=== PATIENT | female | born 1980 | race Caucasian/White ===

== ENCOUNTER 2016-04-05 16:09 | Emergency (ER) | payer SELFPAY ==
--- NOTE | 2016-04-05 16:47 | RAD ---
THREE VIEWS RIGHT HAND: History: Right hand injury. Comparison: None. FINDINGS: No acute fracture or subluxation is evident. No radiopaque foreign body is evident. IMPRESSION: No acute osseous abnormality. POS: [facility]
--- NOTE | 2016-04-05 17:29 | ERRECORD ---
[facility] EMERGENCY RECORD HPI HAND (16:34 SHAN) CHIEF COMPLAINT: Patient presents for evaluation of injury, Patient presents for evaluation of lifting sofa and slipped and dropped it on the right thumb. HISTORIAN: History provided by patient. MECHANISM OF INJURY: Known mechanism, Mechanism of injury: Blunt trauma. SEVERITY: Maximum severity of symptoms mild, Currently symptoms are mild. ROS (16:34 SHAN) CONSTITUTIONAL: Negative constitutional review of systems, Historian denies chills, denies fever. EYES: Negative eye review of systems. ENT: Negative ears, nose, throat review of systems. CARDIOVASCULAR: Negative cardiovascular review of systems, Historian denies chest pain, denies palpitations. RESPIRATORY: Negative respiratory review of systems, Historian denies cough, denies shortness of breath. GI: Negative gastrointestinal review of systems, Historian denies abdominal pain, denies constipation, denies diarrhea. MUSCULOSKELETAL: right thumb pain. SKIN: Negative skin review of systems. NEUROLOGIC: Negative neurologic review of systems. ENDOCRINE: Negative endocrine review of systems. HEMO/LYMPHATIC: Normal hematologic/lymphatic system review. PSYCHIATRIC: Negative psychiatric review of systems. NOTES: All other ROS is negative except as listed in HPI. PAST MEDICAL HISTORY MEDICAL HISTORY: Notes: VERIFIED 09-07-14, Tetanus immunization up to date, Past medical history includes neurological disease, migraine headaches. 12/10/15. (16:20 SFRE) FEMALE SURGICAL HISTORY: VERIFED 09-07-14, Surgical history of cholecystectomy, laparoscopic, Date of surgery 12/2012, Surgical history of hernia repair, Date of surgery 12/2012, Surgical history of appendectomy, Date of surgery 1999, Surgical history of orthopedic surgery, RIGHT SHOULDER, Date of surgery 2010, Surgical history of hysterectomy, Date of surgery 2005, Surgical history of tubal ligation, Date of surgery 2002. 12/10/15. (16:20 SFRE) PSYCHIATRIC HISTORY: Notes: VERIFIED 09-07-14, Psychiatric history includes, anxiety, depression. (16:20 SFRE) SOCIAL HISTORY: Social History includes VERIFIED 09-07-14, Patient denies alcohol use, Patient denies drug use, Patient currently uses tobacco, smokes cigarettes, pt reports that she has changed to smoking vapor cigs.12/10/15. (16:20 SFRE) FAMILY HISTORY: COPD---GRANDMOTHER, Family history includes coronary artery disease, maternal grandfather, Family history includes hypertension. (16:20 SFRE) NOTES: I have reviewed and agree with the PMH/PSxH/FamHx/SocHx &a-1R&a+25V*p+0X*d7334V*c202B*c15G*c2P*p-0X&a-25V&a+1R Name: Darline Lerner : 1980 F35 MedRec: [id number] AcctNum: [id number] Prepared: TueApr 05, 2016 17:33 by Interface Page 1 of 3 pMD [facility] EMERGENCY RECORD obtained by the nurse. (16:34 SHAN) KNOWN ALLERGIES Penicillins PHENobarbital VICOdin CURRENT MEDICATIONS montelukast: TABLET : Strength - 10 mg : ORAL Patient Dose: Unknown. (16:20 SFRE) traZODone: TABLET : Strength - 50 mg : ORAL Patient Dose: Unknown. (16:21 SFRE) FLUoxetine: CAPSULE : Strength - 20 mg : ORAL Patient Dose: Unknown. (16:21 SFRE) Proventil HFA: HFA AEROSOL WITH ADAPTER (GRAM) : Strength - 90 mcg : INHALATION Patient Dose: 2 inhalation Intranasal. (16:22 SFRE) VITAL SIGNS (16:17 SFRE) VITAL SIGNS: BP: 113/61, Pulse: 72, Resp: 18, Temp: 99.0 (Tympanic), Pain: 8 (Constant), O2 sat: 97 on Room Air, Time: 04/05/2016 16:17. PHYSICAL EXAM (16:34 SHAN) CONSTITUTIONAL: Vital signs reviewed, Patient appears non toxic, Patient alert and oriented to person, place and time, Pt is in no apparent distress. HEAD: Head exam included findings of head atraumatic, normocephalic. EYES: Eye exam included findings of eyelids normal to inspection, Pupils equally round and reactive to light, Extraocular muscles intact. ENT: ENT exam normal, Nose exam normal, no nasal deformity, no bleeding from nares, Pharynx exam normal, Mouth exam normal, mucous membranes moist. NECK: Neck exam included findings of normal range of motion, Trachea midline. RESPIRATORY CHEST: Respiratory and chest exam normal, Breath sounds clear, No wheezing, No rales, Chest exam included findings of chest movement symmetrical, Chest expansion equal. CARDIOVASCULAR: Cardiovascular assessment normal, Cardiovascular exam included findings of heart rate regular rate and rhythm, Heart sounds normal. ABDOMEN FEMALE: Abdominal exam included findings of abdomen nontender, Bowel sounds normal, no mass, no pulsatile masses, no peritoneal signs. BACK: Back exam included findings of normal inspection, range of &a-1R&a+25V*p+0X*l0988I*c202B*c15G*c2P*p-0X&a-25V&a+1R Name: Darline Lerner : 1980 F35 MedRec: [id number] AcctNum: [id number] Prepared: TueApr 05, 2016 17:33 by Interface Page 2 of 3 pMD [facility] EMERGENCY RECORD motion normal, no costovertebral angle tenderness. UPPER EXTREMITY: right thumb with pain and tenderness at mp region, some bruising., Upper extremity exam included findings of inspection normal, Range of motion normal. LOWER EXTREMITY: Lower extremity exam included findings of inspection normal, Range of motion normal. NEURO: Neuro exam findings include patient oriented to person, place and time, Speech normal, no focal motor deficits, no focal sensory deficits. SKIN: Skin exam included findings of skin warm, dry, and normal in color. LYMPHATIC: Lymphatic exam normal. PSYCHIATRIC: Psychiatric exam included findings of patient oriented to person place and time, Normal affect. DOCTOR NOTES (:20 SHAN) TEXT: x-rays negative; discussed. PROBLEM LIST No recorded problems DIAGNOSIS (: SHAN) FINAL: PRIMARY: thumb contusion, right. PRESCRIPTION (: SHAN) Ultram: TABLET : 50 mg : ORAL : Quantity: 1 Unit: tab(s) Route: ORAL Schedule: every 4 hours prn Dispense: 12 Unit: tab(s) May substitute. Refills: No Refills POTENTIAL ALLERGY REACTION: 'VICOdin [hydrocodone/hydrocodone bitartrate]'. NOTES: No Refills. DISPOSITION PATIENT: Disposition Type: Discharge, Disposition: *Discharge Home. (17:22 SHAN) Patient left the department. (17:33 [facility] Rocha: COLLINS=BRITTANIE Wells, Francisca VERDE=BRITTANIE Otero, Lani CANCINO=MD Heredia Stanley &a-1R&a+25V*p+0X*x2055V*c202B*c15G*c2P*p-0X&a-25V&a+1R Name: Darline Lerner : 1980 F35 MedRec: [id number] AcctNum: [id number] Prepared: TueApr 05, 2016 17:33 by Interface Page 3 of 3 pMD MTDD
--- NOTE | 2016-04-05 17:35 | PICIS ---
[facility] EMERGENCY RECORD TRIAGE (16:18 SFRE) TRIAGE NOTES: PAIN TO RIGHT THUMB. (16:18 SFRE) PATIENT: NAME: Darline Lerner, AGE: 35, GENDER: female, : Tue1980, TIME OF GREET: TueApr 05, 2016 16:09, PREFERRED LANGUAGE: Estonian, ETHNICITY: Not or , FALL RISK: NO, ECODE BILLING MAP: [facility], SSN: [id number], Zip Code: [address], KG WEIGHT: 52.16, PHONE: , , , PERSON ID: [id number], PCP: MD CAREY IMELDA. (16:18 SFRE) COMPLAINT: RT HAND INJURY. (16:18 SFRE) ADMISSION: URGENCY: 4 Non Urgent, ADMISSION SOURCE: Home, TRANSPORT: Walk-in, BED: ED -1. (16:18 SFRE) PAIN: Location RIGHT THUMB, Pain is constant, Aggravating factors:, Pain exacerbated by movement, No relieving factors. (16:20 SFRE) IMMUNIZATIONS: Flu vaccine not up to date. (16:20 SFRE) SIRS SCORING: Heart Rate 55-109 (0), Temp range 96.8-101.1 (0), respiratory rate 12-24 (0), Mental Status altered: no (0). (16:20 SFRE) TRIAGE SCREENING: Patient denies suicidal ideation, Patient denies presence of domestic violence. (16:20 SFRE) PROVIDERS: TRIAGE NURSE: Lani Otero RN. (16:18 SFRE) VITAL SIGNS: BP 113/61, Pulse 72, Resp 18, Temp 99.0, (Tympanic), Pain 8, (Constant), O2 Sat 97, on Room Air, Time 04/05/2016 16:17. (16:17 SFRE) PREVIOUS VISIT ALLERGIES: Penicillins, PHENobarbital, VICOdin. (16:18 SFRE) Penicillins, PHENobarbital, VICOdin. (16:20 SFRE) KNOWN ALLERGIES Penicillins PHENobarbital VICOdin CURRENT MEDICATIONS montelukast: TABLET : Strength - 10 mg : ORAL Patient Dose: Unknown. (16:20 SFRE) traZODone: TABLET : Strength - 50 mg : ORAL Patient Dose: Unknown. (16:21 SFRE) FLUoxetine: CAPSULE : Strength - 20 mg : ORAL Patient Dose: Unknown. (16:21 SFRE) Proventil HFA: HFA AEROSOL WITH ADAPTER (GRAM) : Strength - 90 mcg : INHALATION Patient Dose: 2 inhalation Intranasal. (16:22 SFRE) VITAL SIGNS (16:17 SFRE) VITAL SIGNS: BP: 113/61, Pulse: 72, Resp: 18, Temp: 99.0 &a-1R&a+25V*p+0X*d8427G*c202B*c15G*c2P*p-0X&a-25V&a+1R Name: Darline Lerner : 1980 F35 MedRec: [id number] AcctNum: [id number] Prepared: TueApr 05, 2016 17:33 by Interface Page 1 of 5 pMD [facility] EMERGENCY RECORD (Tympanic), Pain: 8 (Constant), O2 sat: 97 on Room Air, Time: 04/05/2016 16:17. NURSING PROCEDURE: [facility]GE: Patient discharged to home, ambulating without assistance, family driving, accompanied by other family member, Summary of Care printed/ provided, Patient requested and was provided an electronic copy of Discharge Instructions, Transition record given to patient, Discharge instructions given to patient, Simple or moderate discharge teaching performed, Prescriptions given and instructions on side effects given, Medication reconciliation form given, Above person(s) verbalized understanding of discharge instructions and follow-up care, Patient treated and evaluated by physician. BELONGINGS: Belongings and valuables with patient at time of discharge include:, Belongings remain with patient, Valuables remain with patient. SAFETY: Side rails up, Cart/Stretcher in lowest position, Family at bedside, Hospital ID band on. NURSING PROCEDURE: SPLINTING (17:23 SFRE) SPLINTING: Splinting indicated for pain control, Splinting indicated for CONTUSION, Splint applied to, the first finger, on the right hand, by JORGE. ORDER DETAILS Order Name: XR Hand Rt 3 View STANDARD, Status: Active, Time: 16:26 04/05/2016, User: AMMON, - Ordered for: MD Heredia Stanley, - Entered by: BRITTANIE Otero, Lani - TueApr 05, 2016 16:26, - Quantity: 1. HPI HAND (16:34 JULITA) CHIEF COMPLAINT: Patient presents for evaluation of injury, Patient presents for evaluation of lifting sofa and slipped and dropped it on the right thumb. HISTORIAN: History provided by patient. MECHANISM OF INJURY: Known mechanism, Mechanism of injury: Blunt trauma. SEVERITY: Maximum severity of symptoms mild, Currently symptoms are mild. ROS (16:34 SHAN) CONSTITUTIONAL: Negative constitutional review of systems, Historian denies chills, denies fever. EYES: Negative eye review of systems. ENT: Negative ears, nose, throat review of systems. CARDIOVASCULAR: Negative cardiovascular review of systems, Historian denies chest pain, denies palpitations. RESPIRATORY: Negative respiratory review of systems, Historian &a-1R&a+25V*p+0X*o9734F*c202B*c15G*c2P*p-0X&a-25V&a+1R Name: Darline Lerner : 1980 F35 MedRec: [id number] AcctNum: [id number] Prepared: TueApr 05, 2016 17:33 by Interface Page 2 of 5 pMD [facility] EMERGENCY RECORD denies cough, denies shortness of breath. GI: Negative gastrointestinal review of systems, Historian denies abdominal pain, denies constipation, denies diarrhea. MUSCULOSKELETAL: right thumb pain. SKIN: Negative skin review of systems. NEUROLOGIC: Negative neurologic review of systems. ENDOCRINE: Negative endocrine review of systems. HEMO/LYMPHATIC: Normal hematologic/lymphatic system review. PSYCHIATRIC: Negative psychiatric review of systems. NOTES: All other ROS is negative except as listed in HPI. PAST MEDICAL HISTORY MEDICAL HISTORY: Notes: VERIFIED 09-07-14, Tetanus immunization up to date, Past medical history includes neurological disease, migraine headaches. 12/10/15. (16:20 SFRE) FEMALE SURGICAL HISTORY: VERIFED 09-07-14, Surgical history of cholecystectomy, laparoscopic, Date of surgery 12/2012, Surgical history of hernia repair, Date of surgery 12/2012, Surgical history of appendectomy, Date of surgery 1999, Surgical history of orthopedic surgery, RIGHT SHOULDER, Date of surgery 2010, Surgical history of hysterectomy, Date of surgery 2005, Surgical history of tubal ligation, Date of surgery 2002. 12/10/15. (16:20 SFRE) PSYCHIATRIC HISTORY: Notes: VERIFIED 09-07-14, Psychiatric history includes, anxiety, depression. (16:20 SFRE) SOCIAL HISTORY: Social History includes VERIFIED 09-07-14, Patient denies alcohol use, Patient denies drug use, Patient currently uses tobacco, smokes cigarettes, pt reports that she has changed to smoking vapor cigs.12/10/15. (16:20 SFRE) FAMILY HISTORY: COPD---GRANDMOTHER, Family history includes coronary artery disease, maternal grandfather, Family history includes hypertension. (16:20 SFRE) NOTES: I have reviewed and agree with the PMH/PSxH/FamHx/SocHx obtained by the nurse. (16:34 SHAN) PHYSICAL EXAM (16:34 SHAN) CONSTITUTIONAL: Vital signs reviewed, Patient appears non toxic, Patient alert and oriented to person, place and time, Pt is in no apparent distress. HEAD: Head exam included findings of head atraumatic, normocephalic. EYES: Eye exam included findings of eyelids normal to inspection, Pupils equally round and reactive to light, Extraocular muscles intact. ENT: ENT exam normal, Nose exam normal, no nasal deformity, no bleeding from nares, Pharynx exam normal, Mouth exam normal, mucous membranes moist. NECK: Neck exam included findings of normal range of motion, Trachea midline. RESPIRATORY CHEST: Respiratory and chest exam normal, Breath &a-1R&a+25V*p+0X*t1016O*c202B*c15G*c2P*p-0X&a-25V&a+1R Name: Darline Lerner : 1980 F35 MedRec: [id number] AcctNum: [id number] Prepared: TueApr 05, 2016 17:33 by Interface Page 3 of 5 pMD [facility] EMERGENCY RECORD sounds clear, No wheezing, No rales, Chest exam included findings of chest movement symmetrical, Chest expansion equal. CARDIOVASCULAR: Cardiovascular assessment normal, Cardiovascular exam included findings of heart rate regular rate and rhythm, Heart sounds normal. ABDOMEN FEMALE: Abdominal exam included findings of abdomen nontender, Bowel sounds normal, no mass, no pulsatile masses, no peritoneal signs. BACK: Back exam included findings of normal inspection, range of motion normal, no costovertebral angle tenderness. UPPER EXTREMITY: right thumb with pain and tenderness at mp region, some bruising., Upper extremity exam included findings of inspection normal, Range of motion normal. LOWER EXTREMITY: Lower extremity exam included findings of inspection normal, Range of motion normal. NEURO: Neuro exam findings include patient oriented to person, place and time, Speech normal, no focal motor deficits, no focal sensory deficits. SKIN: Skin exam included findings of skin warm, dry, and normal in color. LYMPHATIC: Lymphatic exam normal. PSYCHIATRIC: Psychiatric exam included findings of patient oriented to person place and time, Normal affect. EVENTS TRANSFER: Triage to Emergency Main ED -H01. (TueApr 05, 2016 16:18 SFRE) Emergency Main ED -H01 to -04. (16:25 RYLEY) Removed from Emergency Main ED -04. (17:33 SCHI) DOCTOR NOTES (17:20 SHAN) TEXT: x-rays negative; discussed. PROBLEM LIST No recorded problems DIAGNOSIS (17:22 SHAN) FINAL: PRIMARY: thumb contusion, right. DISPOSITION PATIENT: Disposition Type: Discharge, Disposition: *Discharge Home. (17:22 SHAN) Patient left the department. (17:33 SCHI) INSTRUCTION (17:24 SHAN) DISCHARGE: CONTUSION, HAND. FOLLOWUP: MD CHERRY, [facility], [facility][1], [address] [place] [id number], [phone]. SPECIAL: 1. use splint until pain is gone 2. followup with regular provider in a few days &a-1R&a+25V*p+0X*q4899Y*c202B*c15G*c2P*p-0X&a-25V&a+1R Name: Darline Lerner : 1980 F35 MedRec: [id number] AcctNum: [id number] Prepared: TueApr 05, 2016 17:33 by Interface Page 4 of 5 pMD [facility] EMERGENCY RECORD 3. if this doesn't improve, it may need re-xrayed later; but todays appears good 4. ultram if needed for pain sparingly. PRESCRIPTION (17:22 SHAN) Ultram: TABLET : 50 mg : ORAL : Quantity: 1 Unit: tab(s) Route: ORAL Schedule: every 4 hours prn Dispense: 12 Unit: tab(s) May substitute. Refills: No Refills POTENTIAL ALLERGY REACTION: 'VICOdin [hydrocodone/hydrocodone bitartrate]'. NOTES: No Refills. IMAGING (17:32 SCHI) *DISCHARGE INSTRUCTIONS RECEIPT: Image captured from scanner. *SUPPLY CHARGE SHEET: Image captured from scanner. ADMIN DIGITAL SIGNATURE: MD Heredia Stanley. (17:24 JULITA) BRITTANIE Wells Slinda. (17:33 COLLINS) RESULTS (16:54 AMMON) RADIOLOGY: XR Hand Rt 3 View STANDARD Observe DT: TueApr 05, 2016 16:27, HAND3R THREE VIEWS RIGHT HAND: History: Right hand injury. Comparison: None. FINDINGS: No acute fracture or subluxation is evident. No radiopaque foreign body is evident. IMPRESSION: No acute osseous abnormality. POS: [facility] . Rocha: RYLEY=BRITTANIE Mancia, Lainey GUADALUPE=BRITTANIE Wells, Francisca GRIGGSE=BRITTANIE Otero, Lani CANCINO=MD Heredia Stanley &a-1R&a+25V*p+0X*w4234O*c202B*c15G*c2P*p-0X&a-25V&a+1R Name: Darline Lerner : 1980 F35 MedRec: [id number] AcctNum: [id number] Prepared: TueApr 05, 2016 17:33 by Interface Page 5 of 5 pMD MTDD
== END 2016-04-05 17:29 | disposition home or self-care (01) ==
LOC: MADERS 16:09
DX: S60.011A Contusion of right thumb without damage to nail, initial encounter (principal); F41.9 Anxiety disorder, unspecified; F32.9 Major depressive disorder, single episode, unspecified; F17.210 Nicotine dependence, cigarettes, uncomplicated; W01.0XXA Fall on same level from slipping, tripping and stumbling without subsequent striking against object, initial encounter
CPT/HCPCS: 99283

== ENCOUNTER 2016-10-12 11:30 | Emergency (ER) | payer SELFPAY ==
[2016-10-12 12:03] LABS: #Basophils 0.2 thou/uL (0.0-0.2); #Eosinphils 0.8 thou/uL (0.0-0.7); #Lymphocytes 2.5 thou/uL (1.20-3.40); #Monocytes 1.1 thou/uL (0.11-0.59); #Neutrophils 8.7 thou/uL (1.40-6.50); %Basophils 1.7 % (0.0-1.0); %Lymphocytes 18.9 % (21.0-51.0); %Monocytes 8.4 % (0.0-10.0); Hemoglobin 14.8 g/dL (12.0-16.0); Mean Corpuscular HGB CONC 33.6 g/dL (32.0-36.0); Mean Corpuscular Hemoglobin 32.6 pg (27.0-31.0); Mean Platelet Volume 10.6 fL (7.4-10.4); Platelet Count 252 thou/uL (130-400); RBC Distribution Width 11.8 % (11.5-14.5); Red Blood Cell (RBC) Count 4.54 mill/uL (4.20-5.40); White Blood Cell (WBC) Count 13.4 thou/uL (4.8-10.8)
[2016-10-12] MEDS ORDERED: Fentanyl 100 MCG/2 ML VIAL ONE (12:07)
[2016-10-12 12:14] LABS: PTT 28.1 SEC (22.9-36.1)
[2016-10-12 12:15] LABS: INR-International Normal Ratio 0.9; Prothrombin Time 12.1 SEC (12.0-14.7)
[2016-10-12 12:18] LABS: ALT (SGPT) 19 U/L (8-55); AST (SGOT) 17 U/L (5-34); Albumin 4.2 g/dL (3.5-5.0); Alkaline Phosphatase 79 U/L (40-150); Anion Gap 13 mmol/L (10-20); BUN (Urea Nitrogen) 10 mg/dL (7.0-18.7); Bilirubin, Total Less than 0.3 mg/dL (0.2-1.2); Calc. Creatinine Clearance 0 mL/min (70-130); Carbon Dioxide 22 mmol/L (22-29); Chloride 108 mmol/L (98-107); D-Dimer Test Less than 0.27 *mcg/mL (0.27-0.43); Estimated GFR-MDRD 87; Globulin 3.1 g/dL (2.4-3.5); Glucose 71 mg/dL (70-105); Lipase 55 U/L (8-78); Potassium 3.7 mmol/L (3.5-5.1); Protein, Total 7.3 g/dL (6.0-8.3); Sodium 139 mmol/L (136-145)
[2016-10-12 12:19] LABS: CKMB 0.7 ng/mL (0-6.6); Troponin I Less than 0.010 ng/mL (< 0.028)
--- NOTE | 2016-10-12 12:21 | RAD ---
TWO VIEWS CHEST: Comparison: 03-21-13, 12-10-15 History: Chest pain. FINDINGS: Normal cardiac silhouette. The pulmonary vessels and hilum are normal. Costophrenic angles are clear . No mass. No consolidation. No pneumothorax or osseous abnormalities. IMPRESSION: No acute cardiopulmonary process. POS: [facility]
[2016-10-12] MEDS ORDERED: Mag-Al Plus 1200 MG/1200 MG/120 MG/30 ML UDCUP ONE (12:31)
== END 2016-10-12 14:55 | disposition home or self-care (01) ==
LOC: MADERS 11:30
DX: K29.70 Gastritis, unspecified, without bleeding (principal); F41.9 Anxiety disorder, unspecified; F32.9 Major depressive disorder, single episode, unspecified; F17.210 Nicotine dependence, cigarettes, uncomplicated
CPT/HCPCS: 36415; 71020; 80053; 82553; 83690; 83880; 84484; 85025; 85379; 85610; 85730; 93005; 96374; J3010

== ENCOUNTER 2017-05-31 10:40 | Emergency (ER) | payer MEDICAID, SELFPAY ==
--- NOTE | 2017-05-31 11:46 | RAD ---
THREE VIEWS RIGHT FOOT: Date: 05-31-17 History: Pain at right first metacarpal phalangeal joint. Comparison: 03-11-15 FINDINGS: Lisfranc joint is normally aligned. No fracture or dislocation is seen involving the right foot. Ther e has been no interval change compared to the prior exam. IMPRESSION: No acute osseous abnormality right foot. POS: [facility]
== END 2017-05-31 11:40 | disposition home or self-care (01) ==
LOC: MADERS 10:40
DX: M77.51 Other enthesopathy of right foot and ankle (principal); L02.01 Cutaneous abscess of face; F41.9 Anxiety disorder, unspecified; F32.9 Major depressive disorder, single episode, unspecified; F17.210 Nicotine dependence, cigarettes, uncomplicated

== ENCOUNTER 2017-07-27 09:52 | Outpatient (CLI) | payer MEDICAID ==
--- NOTE | 2017-07-27 12:23 | ULT ---
PELVIC ULTRASOUND: Technique: Transabdominal and endovaginal ultrasound of the pelvis performed. Indications: Pelvic pain. Prior hysterectomy. FINDINGS: Right ovary is noted identified. Left ovary is identified and appears unremarkable. A small follicula r cyst on the left ovary measures approximately 1.0 cm. Color doppler with spectral analysis demonstr ates flow to the left ovary. No free fluid or mass lesion is seen. IMPRESSION: 1. Post hysterectomy. 2. Right ovary not identified. 3. Left ovary appears unremarkable. POS: [facility]
== END 2017-07-27 09:53 | disposition home or self-care (01) ==
LOC: MADULT 09:52
PROVIDERS: ATTEND Family Medicine
DX: N94.12 Deep dyspareunia (principal); Z90.710 Acquired absence of both cervix and uterus
CPT/HCPCS: 76856

== ENCOUNTER 2018-12-12 17:24 | Emergency (ER) | payer SELFPAY | END 2018-12-12 18:05 | disposition home or self-care (01) | LOC: MADERS 17:24 | DX: K02.9 Dental caries, unspecified (principal); G43.909 Migraine, unspecified, not intractable, without status migrainosus; F41.9 Anxiety disorder, unspecified; F32.9 Major depressive disorder, single episode, unspecified; F17.210 Nicotine dependence, cigarettes, uncomplicated; Z79.82 Long term (current) use of aspirin; Z79.899 Other long term (current) drug therapy | CPT/HCPCS: 99281 ==

== ENCOUNTER 2020-02-17 12:51 | Emergency (ER) | payer SELFPAY ==
[2020-02-17] MEDS ORDERED: traMADol HCl 50 MG TAB ONE (13:26)
[2020-02-17] MEDS ORDERED: Clindamycin 150 MG CAP ONE (13:27)
[2020-02-17] MEDS ORDERED: Calcium Carbonate 500 MG ChewTAB ONE (13:27)
== END 2020-02-17 13:50 | disposition home or self-care (01) ==
LOC: MADERS 12:51
DX: K04.7 Periapical abscess without sinus (principal); G43.909 Migraine, unspecified, not intractable, without status migrainosus; F17.210 Nicotine dependence, cigarettes, uncomplicated; Z71.6 Tobacco abuse counseling; Z79.82 Long term (current) use of aspirin; Z79.899 Other long term (current) drug therapy
CPT/HCPCS: 99406

== ENCOUNTER 2020-08-09 11:35 | Emergency (ER) | payer OTHER, MEDICAID ==
[2020-08-09] MEDS ORDERED: Oseltamivir 75 MG CAP ONE (11:57)
[2020-08-09] MEDS ORDERED: Boostrix 0.5 ML (Tdap) VIAL ONE (11:57)
[2020-08-09] MEDS ORDERED: Bacitracin 1 PK ONE (12:03)
[2020-08-09] MEDS ORDERED: Lidocaine 1% w/Epinephrine 1:100K 20 ML VIAL ONE (12:03)
[2020-08-09] MEDS ORDERED: Ibuprofen 600 MG TAB ONE (12:03)
== END 2020-08-09 12:25 | disposition home or self-care (01) ==
LOC: MADERS 11:35
DX: S51.812A Laceration without foreign body of left forearm, initial encounter (principal); Z23 Encounter for immunization; G43.909 Migraine, unspecified, not intractable, without status migrainosus; F17.210 Nicotine dependence, cigarettes, uncomplicated; Z79.899 Other long term (current) drug therapy; W45.8XXA Other foreign body or object entering through skin, initial encounter
CPT/HCPCS: 12001; 90471; 90715

== ENCOUNTER 2021-09-28 18:30 | Emergency (ER) | payer OTHER | END 2021-09-28 19:40 | disposition home or self-care (01) | LOC: MADERS 18:30 | DX: S60.211A Contusion of right wrist, initial encounter (principal); F17.210 Nicotine dependence, cigarettes, uncomplicated; W01.0XXA Fall on same level from slipping, tripping and stumbling without subsequent striking against object, initial encounter; Y92.009 Unspecified place in unspecified non-institutional (private) residence as the place of occurrence of the external cause; Z79.899 Other long term (current) drug therapy ==

== ENCOUNTER 2021-12-03 19:18 | Emergency (ER) | payer OTHER ==
[2021-12-03] MEDS ORDERED: Dexamethasone 10 MG/ML VIAL ONE (20:25)
[2021-12-03] MEDS ORDERED: Clindamycin 150 MG CAP ONE (20:25)
== END 2021-12-03 20:31 | disposition home or self-care (01) ==
LOC: MADERS 19:18
DX: J02.9 Acute pharyngitis, unspecified (principal); J06.9 Acute upper respiratory infection, unspecified; K04.7 Periapical abscess without sinus; F17.210 Nicotine dependence, cigarettes, uncomplicated
CPT/HCPCS: 87081; 87430; 99283; J1100

== ENCOUNTER 2023-08-31 19:05 | Emergency (ER) | payer SELFPAY ==
[2023-08-31] MEDS ORDERED: metroNIDAZOLE 250 MG TAB ONE (20:18)
[2023-08-31] MEDS ORDERED: LevoFLOXacin 500 MG TAB ONE (20:18)
[2023-08-31] MEDS ORDERED: Ketorolac Tromethamine 30 MG (1 mL) VIAL ONE (20:26)
== END 2023-08-31 20:45 | disposition home or self-care (01) ==
LOC: MADERS 19:05
DX: K04.7 Periapical abscess without sinus (principal); Z87.891 Personal history of nicotine dependence
CPT/HCPCS: 96372; 99282; J1885

== ENCOUNTER 2024-10-24 14:24 | Emergency (ER) | payer BC ==
[~2024-10-24 14:24] MED LIST: Iopamidol 370 76% 100 ML VIAL ONE
[2024-10-24 15:04] LABS: #Basophils 0.1 thou/uL (0.0-0.2); #Eosinophils 0.1 thou/uL (0.0-0.7); #Lymphocytes 2.4 thou/uL (1.20-3.40); #Monocytes 0.5 thou/uL (0.11-0.59); #Neutrophils 3.6 thou/uL (1.40-6.50); %Basophils 1.1 % (0.0-1.0); %Eosinophils 2.1 % (0.0-10.0); %Lymphocytes 35.6 % (21.0-51.0); %Monocytes 7.6 % (0.0-10.0); %Neutrophils 53.7 % (42.0-75.0); Hematocrit 39.8 % (36.0-47.0); Hemoglobin 13.3 g/dL (12.0-16.0); Mean Corpuscular Hemoglobin 30.9 pg (27.0-31.0); Mean Corpuscular Volume 92.6 fl (78.0-98.0); Platelet Count 224 10x3/uL (130-400); Red Blood Cell (RBC) Count 4.30 mill/uL (4.20-5.40); White Blood Cell (WBC) Count 6.7 10x3/uL (4.8-10.8)
[2024-10-24 15:16] LABS: ALT (SGPT) 51 U/L (Less than 34); AST (SGOT) 33 U/L (11-34); Albumin 4.5 g/dL (3.1-4.5); Alkaline Phosphatase 69 U/L (40-110); Anion Gap 16 mmol/L (10-20); BUN (Urea Nitrogen) 17 mg/dL (7.0-18.7); Bilirubin, Total 0.6 mg/dL (0.3-1.2); Calc. Creatinine Clearance 0 mL/min (70-130); Calcium 9.7 mg/dL (7.8-10.44); Carbon Dioxide 23 mmol/L (22-29); Chloride 105 mmol/L (98-107); Globulin 2.6 g/dL (2.4-3.5); Glucose 112 mg/dL (70-105); Magnesium 2.0 mg/dL (1.6-2.6); Potassium 3.8 mmol/L (3.5-5.1); Sodium 140 mmol/L (136-145)
[2024-10-24 15:17] LABS: Troponin I Less than 0.010 ng/mL (< 0.028)
[2024-10-24] MEDS ORDERED: Ketorolac Tromethamine 30 MG (1 mL) VIAL ONE (15:33)
[2024-10-24] MEDS ORDERED: Orphenadrine Citrate 60 MG/2 ML VIAL ONE (15:33)
[2024-10-24] MEDS ORDERED: Mag-Al 1200 mg/1200 mg/30 ML UDCUP ONE ×2 (16:43→21:57)
[2024-10-24] MEDS ORDERED: Lidocaine Viscous Sol 2% 15 ml UD Cup ONE ×2 (16:44→21:57)
[2024-10-24 18:53] LABS: Troponin I Less than 0.010 ng/mL (< 0.028)
[2024-10-24] MEDS ORDERED: Pantoprazole 40 MG VIAL ONE (21:57)
== END 2024-10-24 20:04 | disposition home or self-care (01) ==
LOC: MADERS 14:24
DX: S29.011A Strain of muscle and tendon of front wall of thorax, initial encounter (principal); R00.1 Bradycardia, unspecified; J44.9 Chronic obstructive pulmonary disease, unspecified; I10 Essential (primary) hypertension; Z87.891 Personal history of nicotine dependence; X58.XXXA Exposure to other specified factors, initial encounter
CPT/HCPCS: 71045; 71260; 80053; 83735; 83880; 84484; 85025; 85379; 93005; 96374; 96375; J1885; J2360; J2470; J2550; J2919; J7030; Q9967